=== PATIENT | male | born 1955 | race Caucasian/White ===

== ENCOUNTER → 2024-09-21 | Outpatient (CLI) | payer MEDICARE ==
--- NOTE | 2024-09-21 09:55 | US ---
EXAMINATION TYPE: US Aorta Screening DATE OF EXAM: 09/21/2024 COMPARISON: NONE CLINICAL INDICATION: Male, 69 years old with history of Z13.6 ENCOUNTER FOR SCREEING FOR CARDIOVASCUL AR DI; Father had AAA; Hx HTN and DM; Patient denies any other signs, symptoms, or relevant history TECHNIQUE: Multiple sonographic images of the abdominal aorta are obtained with grayscale and color D oppler imaging. FINDINGS: EXAM MEASUREMENTS: Abdominal Aorta: Proximal: 2.5 x 2.9 cm Mid: 2.0 x 2.4 cm Distal: 1.8 x 2.3 cm Bifurcation: Right Iliac: 1.1 x 1.0 cm Left Iliac: 1.2 x 1.3 cm SECY NOTES: Difficult exam due to overlying bowel gas, otherwise normal abdominal aorta IMPRESSION: No evidence for aortic aneurysm. No further workup recommended for negative screening aortic aneurysm ultrasound. [facility], , 09/21/2024 9:53 AM
== END | disposition home or self-care (01) ==
LOC: RADUSWWP 08:01
PROVIDERS: ATTEND Family Medicine
DX: Z13.6 Encounter for screening for cardiovascular disorders (principal); I10 Essential (primary) hypertension; E11.9 Type 2 diabetes mellitus without complications
CPT/HCPCS: 76706